=== PATIENT | male | born 1955 ===

== ENCOUNTER 2020-05-03 03:40 | Outpatient (CLI) | payer OTHER | END 2020-05-03 15:41 | disposition home or self-care (01) | LOC: PPH VACUNA 03:40 | PROVIDERS: ATTEND Emergency Medicine Pediatric Emergency Medicine | DX: Z23 Encounter for immunization (principal) ==

== ENCOUNTER → 2021-04-26 10:39 | Outpatient (CLI) | payer OTHER | END | disposition home or self-care (01) | LOC: LAB 10:39 | PROVIDERS: ATTEND Internal Medicine | DX: Z20.828 Contact with and (suspected) exposure to other viral communicable diseases (principal) ==